=== PATIENT | female | born 1950 | race Asian ===

== ENCOUNTER 2019-11-10 08:22 | Inpatient (IN) | payer MEDICARE, OTHER ==
[~2019-11-10] VITALS: Ht 157.5 cm; Wt 41.7 kg
[2019-11-10] MEDS ORDERED: IPRATRPIUM/ALBUTEROL 0.5/2.5MG 3 ML NEBU. NEB ONE (09:00)
[2019-11-10 09:16] LABS: BASO # 0.1 x10^3/uL (0.0-0.2); BASO % 1 % (0-3); EOS % 0 % (0-3); HEMATOCRIT 44.5 % (36.0-47.0); HEMOGLOBIN 14.8 g/dL (12.0-15.5); LYMPH # 1.3 x10^3/uL (1.0-4.8); LYMPH % 18 % (24-48); MEAN CORPUSCULAR HEMOGLOBIN 33 pg (25-35); MEAN CORPUSCULAR HGB CONC 33 g/dL (31-37); MEAN CORPUSCULAR VOLUME 99 fL (79-100); MONO # 0.5 x10^3/uL (0.0-1.1); MONO % 8 % (0-9); NEUT % 73 % (31-73); PLATELET COUNT 342 x10^3/uL (140-400); RED BLOOD COUNT 4.51 x10^6/uL (3.50-5.40); RED CELL DISTRIBUTION WIDTH 16.3 % (11.5-14.5); WHITE BLOOD COUNT 6.9 x10^3/uL (4.0-11.0)
[2019-11-10 09:24] LABS: INFLUENZA A PATIENT NEGATIVE (NEGATIVE); INFLUENZA B PATIENT NEGATIVE (NEGATIVE)
--- NOTE | 2019-11-10 09:27 | RAD ---
EXAM: Chest, single view. HISTORY: Shortness of breath. COMPARISON: 09/27/2019. 07/10/2019 FINDINGS: A frontal view of the chest is obtained. There is hyperinflation due to emphysema. There is no consolidation, pleural effusion or pneumothorax. There is a circumscribed nodule overlying the right lower thorax due to a nipple shadow. There is a healed or healing posterior left ninth rib fracture. There is cervical spinal fusion instrumentation. There is a healed distal left clavicle fracture. IMPRESSION: 1. Emphysema. 2. No acute pulmonary finding. Electronically signed by: Cleo Hopson MD (11/10/2019 9:24 AM) [place] [id number]
[2019-11-10 09:37] LABS: ALBUMIN 4.1 g/dL (3.4-5.0); CALCIUM 9.5 mg/dL (8.5-10.1); CREATININE 1.2 mg/dL (0.6-1.0); GFR 44.7; TOTAL BILIRUBIN 0.2 mg/dL (0.2-1.0); TOTAL PROTEIN 8.3 g/dL (6.4-8.2)
[2019-11-10 09:38] LABS: POTASSIUM 2.8 mmol/L (3.5-5.1)
[2019-11-10] MEDS ORDERED: POTASSIUM BICARB 20 MEQ EFFERVESCENT TABLET. PO ONE (10:00)
[2019-11-10 10:09] LABS: BILIRUBIN,URINE NEG (NEG); CLARITY,URINE CLEAR; COLOR,URINE YELLOW; GLUCOSE,URINE NEG (NEG); NITRITE,URINE NEG (NEG); UROBILINOGEN,URINE 0.2 mg/dL (0.2 mg/dL)
[2019-11-10 10:10] LABS: BACTERIA,URINE FEW /HPF (0-FEW); SQUAMOUS EPITHELIAL CELL,UR FEW /LPF; WBC,URINE OCC /HPF (0-4)
--- NOTE | 2019-11-10 10:35 | PHYS DOC ---
Past History Past Medical History: Anxiety, Heart Disease, Hypertension Past Surgical History: Other Additional Past Surgical Histo: back surgeries Additional Smoking Information: 1 PPD Alcohol Use: None Drug Use: None Adult General Chief Complaint Chief Complaint: WEAKNESS/GENERALIZED HPI HPI Patient is a 69-year-old female with multiple medical problems/comorbidities who presents with generalized weakness which is been progressive over the past several days with inability to get out of bed this morning. No reported falls, injuries, fever chills, sweats, chest pain palpitations shortness breath cough. No abdominal pain, urinary frequency urgency or dysuria. Reports he can back pain. No other acute symptoms or complaints. History obtained from patient and the patient spouse. [] Review of Systems Review of Systems Review symptoms as per history of present illness. All other review symptoms are negative. All other systems were reviewed and found to be within normal limits, except as documented in this note. Current Medications Current Medications Current Medications Medications (Trade) Dose Ordered Sig/Jf Start Time Stop Time Status Last Admin Dose Admin Albuterol/ Ipratropium (Duoneb) 3 ml 1X ONCE 11/10/19 09:00 11/10/19 09:13 DC 11/10/19 09:10 3 ML Potassium Bicarbonate (Potassium Effervescent Tablet) 40 meq 1X ONCE 11/10/19 10:00 11/10/19 10:01 DC 11/10/19 10:22 40 MEQ Allergies Allergies Allergies Coded Allergies Type Severity Reaction Last Updated Verified Iodine and Iodide Containing Produc Allergy Unknown 11/10/19 Yes morphine Allergy Unknown 11/10/19 Yes Physical Exam Physical Exam Constitutional: Well developed, chronically ill and frail appearing. [] HENT: Normocephalic, atraumatic, bilateral external ears normal, oropharynx moist, nose normal. [] Eyes: PERRLA, EOMI, conjunctiva normal, no discharge. [] Neck: Normal range of motion, no tenderness. [] Cardiovascular:Heart rate regular rhythm, no murmur [] Lungs & Thorax: Bilateral breath sounds clear to auscultation [] Abdomen: Bowel sounds normal, soft, no tenderness. [] Skin: Warm, dry, no erythema, no rash. [] Back: No tenderness. [] Extremities: No tenderness. [] Neurologic: Alert and oriented X 3, normal motor function, normal sensory function, no focal deficits noted. [] Psychologic: Affect normal, judgement normal, mood normal. [] Current Patient Data Vital Signs Vital Signs Date Time Temp Pulse Resp B/P (MAP) Pulse Ox O2 Delivery O2 Flow Rate FiO2 11/10/19 09:12 96 Room Air 11/10/19 08:45 98.7 78 16 Lab Results Laboratory Tests Test 11/10/19 08:50 11/10/19 09:03 11/10/19 09:40 Influenza Type A (Rapid) Negative (NEGATIVE) Influenza Type B (Rapid) Negative (NEGATIVE) White Blood Count 6.9 x10^3/uL (4.0-11.0) Red Blood Count 4.51 x10^6/uL (3.50-5.40) Hemoglobin 14.8 g/dL (12.0-15.5) Hematocrit 44.5 % (36.0-47.0) Mean Corpuscular Volume 99 fL (79-100) Mean Corpuscular Hemoglobin 33 pg (25-35) Mean Corpuscular Hemoglobin Concent 33 g/dL (31-37) Red Cell Distribution Width 16.3 % (11.5-14.5) H Platelet Count 342 x10^3/uL (140-400) Neutrophils (%) (Auto) 73 % (31-73) Lymphocytes (%) (Auto) 18 % (24-48) L Monocytes (%) (Auto) 8 % (0-9) Eosinophils (%) (Auto) 0 % (0-3) Basophils (%) (Auto) 1 % (0-3) Neutrophils # (Auto) 5.0 x10^3uL (1.8-7.7) Lymphocytes # (Auto) 1.3 x10^3/uL (1.0-4.8) Monocytes # (Auto) 0.5 x10^3/uL (0.0-1.1) Eosinophils # (Auto) 0.0 x10^3/uL (0.0-0.7) Basophils # (Auto) 0.1 x10^3/uL (0.0-0.2) Sodium Level 134 mmol/L (136-145) L Potassium Level 2.8 mmol/L (3.5-5.1) *L Chloride Level 94 mmol/L (98-107) L Carbon Dioxide Level 30 mmol/L (21-32) Anion Gap 10 (6-14) Blood Urea Nitrogen 35 mg/dL (7-20) H Creatinine 1.2 mg/dL (0.6-1.0) H Estimated GFR (Cockcroft-Gault) 44.7 BUN/Creatinine Ratio 29 (6-20) H Glucose Level 96 mg/dL (70-99) Lactic Acid Level 1.3 mmol/L (0.4-2.0) Calcium Level 9.5 mg/dL (8.5-10.1) Total Bilirubin 0.2 mg/dL (0.2-1.0) Aspartate Amino Transferase (AST) 31 U/L (15-37) Alanine Aminotransferase (ALT) 21 U/L (14-59) Alkaline Phosphatase 116 U/L (46-116) Troponin I Quantitative < 0.017 ng/mL (0-0.055) UI-Crn-D-Type Natriuretic Peptide 39 pg/mL (0-124) Total Protein 8.3 g/dL (6.4-8.2) H Albumin 4.1 g/dL (3.4-5.0) Albumin/Globulin Ratio 1.0 (1.0-1.7) Urine Collection Type Unknown Urine Color Yellow Urine Clarity Clear Urine pH 7.0 Urine Specific Dutton 1.010 Urine Protein Neg (NEG-TRACE) Urine Glucose (UA) Neg mg/dL (NEG) Urine Ketones (Stick) Neg mg/dL (NEG) Urine Blood Trace (NEG) Urine Nitrite Neg (NEG) Urine Bilirubin Neg (NEG) Urine Urobilinogen Dipstick 0.2 mg/dL (0.2 mg/dL) Urine Leukocyte Esterase Neg (NEG) Urine RBC 1-2 /HPF (0-2) Urine WBC Occ /HPF (0-4) Urine Squamous Epithelial Cells Few /LPF Urine Bacteria Few /HPF (0-FEW) EKG EKG [EKG: Normal sinus rhythm, no acute ST-T wave changes.] Radiology/Procedures Radiology/Procedures [Chest x-ray: No acute current injury disease per radiology report.] Course & Med Decision Making Course & Med Decision Making Pertinent Labs and Imaging studies reviewed. (See chart for details) [Denies take/weakness with hypokalemia and acute renal insufficiency. Potassium place an IV fluids given. Will admit to the hospitalists service for further evaluation and treatment.] Dragon Disclaimer Dragon Disclaimer This electronic medical record was generated, in whole or in part, using a voice recognition dictation system. Departure Departure: Impression: Primary Impression: Generalized weakness Additional Impression: Hypokalemia Disposition: 09 ADMITTED INPATIENT Condition: STABLE Referrals: SATURNINO PIERRE MD (PCP) Problem Qualifiers SUSHILA NAVARRO DO Nov 10, 2019 10:35
[2019-11-10] MEDS ORDERED: POTASSIUM CL 40MEQ IN 0.9%NACL 1,000 ML IV ONE (11:15)
[2019-11-10] MEDS ORDERED: ONDANSETRON PF 4 MG/2 ML VIAL. IV PRN (11:15)
[2019-11-10 11:58] VITALS: BP 148/88
[2019-11-10] MEDS: oxyCODONE IR 5 MG TABLET PO PRN (11:59)
[2019-11-10] MEDS ORDERED: ONDANSETRON ODT 4 MG TAB.RAPDIS PO PRN (12:00)
[2019-11-10 12:04] VITALS: BP 148/88
[2019-11-10] MEDS ORDERED: BUPR200T31 PO (12:15)
[2019-11-10] MEDS ORDERED: CARI350T14 PO (12:15)
[2019-11-10] MEDS ORDERED: DOXY100C14 PO (12:15)
[2019-11-10] MEDS ORDERED: LACT1CAP8 PO (12:15)
[2019-11-10] MEDS ORDERED: DILT300C40 PO (12:15)
[2019-11-10] MEDS ORDERED: PANT40TA5 PO (12:15)
[2019-11-10] MEDS ORDERED: ALPR0.5T6 PO (12:15)
[2019-11-10] MEDS ORDERED: ONDA4TAB12 PO (12:15)
[2019-11-10] MEDS ORDERED: PARO40TA3 PO (12:15)
[2019-11-10] MEDS ORDERED: LOSA100T14 PO (12:15)
[2019-11-10] MEDS ORDERED: FURO20TA3 PO (12:19)
[2019-11-10] MEDS: POTASSIUM BICARB 20 MEQ EFFERVESCENT TABLET. PO SCH ×2 (13:00→14:35)
--- NOTE | 2019-11-10 14:02 | HP ---
ADMIT DATE: 11/10/2019 HISTORY OF PRESENT ILLNESS: The patient is a 69-year-old Arabic [place] female patient who came to the Emergency Room with generalized weakness, weight loss that has been progressive over the last several days with inability to get out of the bed this morning. No reported falls or injuries. Denied any fever, chills, sweats, chest pain, palpitation, shortness of breath, cough. Did complain of abdominal bloating and poor appetite and early satiety. She denied any urinary frequency, urgency, or dysuria. She also complained of weight loss. She lost about 11 pounds over the last 3 months. She was extensively investigated in the Emergency Room, was found to have hypokalemia with serum potassium of 2.8. She also has impaired kidney function with elevated BUN and creatinine to 35 and 1.2 respectively. Her magnesium was normal and all her liver enzymes are within normal range. She was admitted for rehydration and to replenish her potassium and to investigate her weight loss and early satiety once her kidney function has improved. PAST MEDICAL HISTORY: Significant for hypertension, COPD, osteoarthritis and degenerative disk disease. PAST SURGICAL HISTORY: Significant for bilateral cataract extraction, cholecystectomy, appendectomy, total abdominal hysterectomy, bilateral salpingo-oophorectomy. She has 8 back surgery according to her. ALLERGIES: SHE IS ALLERGIC TO IODIDE CONTAINING PRODUCTS, MORPHINE, AND LEVAQUIN. MEDICATIONS: She is currently on following medications: She is on doxycycline monohydrate 100 mg twice a day, Soma 350 mg 3 times a day, diltiazem 300 mg daily, losartan potassium 100 mg once a day, Wellbutrin 150 mg twice a day, paroxetine 40 mg daily, alprazolam 0.5 mg 3 times a day, furosemide 20 mg daily, ondansetron 4 mg every 4 hours as needed, Protonix 40 mg daily, lactobacillus 1 capsule twice a day. FAMILY HISTORY: She has one sister and both parents are . She does not know their age or the cause of their . SOCIAL HISTORY: She is , has 2 daughters and 1 son. She smokes a pack a day, does not drink alcohol or use recreational drugs. She is retired and disabled. REVIEW OF SYSTEMS: As in history of present illness. PHYSICAL EXAMINATION GENERAL: On examining her, she was clearly extremely cachectic, but no pallor, jaundice, cyanosis or thyromegaly. No jugular venous distention. No limb edema. VITAL SIGNS: Her heart rate was 86, blood pressure was 148/88, temperature was 98.4, respiratory rate was 18 and oxygen saturation was 93%. HEAD, EYES, EARS, NOSE AND THROAT: Showed normocephalic, atraumatic. NECK: Supple. HEART: Showed normal first and second heart sounds. No gallop, rub or murmur. CHEST: Clear to auscultation. No crepitation or rhonchi. ABDOMEN: Scaphoid, soft, nontender. NEUROLOGIC: She was awake, alert, responding appropriately. All cranial nerves intact. EXTREMITIES: She moves extremities without difficulty, although she apparently has marked muscle weakness. Her chest x-ray showed that there is hyperinflation due to emphysema. There is no consolidation, pleural effusion or pneumothorax. There is a circumscribed nodule overlying the right lower thorax due to the nipple shadow. There is a healed or healing posterior left ninth rib fracture. There is cervical spine fusion instrumentation. There is a healed distal left clavicle fracture. Her lab work showed that her white cell count was 6900, hemoglobin 14.8, hematocrit 44, MCV 99 and platelet count of 342,000 with normal manual differential. Her chemistry showed a serum sodium 134, potassium 2.8, chloride 94, bicarbonate 30, anion gap of 10, BUN 35, creatinine 1.2, estimated GFR was 44 mL per minute. Her glucose was 96, lactic acid was 1.3, calcium was 9.5, magnesium was 2.4. Total bilirubin, AST, ALT, alkaline phosphatase were normal. Her total protein was 8.3, albumin was 4.1. Her troponin I was less than 0.017. Urinalysis showed the urine was yellow, clear with a pH of 7, specific gravity of 1.010. The urine was negative for protein, glucose, ketones. There is trace of blood, negative for nitrite and leukocyte esterase. There is 1-2 rbc's, 0 wbc's, and very few bacteria. Her influenza A and B were negative. SUMMARY: This is a 69-year-old Arabic [place] female patient who was admitted with generalized weakness, weight loss and early satiety. PLAN: My plan is to continue to rehydrate the patient. We will hold her diuretics for now. I will repeat her BMP this evening and again tomorrow morning and once her kidney function improves, we will arrange for her to have a CT scan of the chest, abdomen and pelvis. CATY DUMONT MD DR: SONIA/martha JOB#: [id number] / [id number]
[2019-11-10 14:18] VITALS: BP 126/75
[2019-11-10] MEDS: PANTOPRAZOLE IV 40 MG VIAL. IVP SCH (14:27)
[2019-11-10] MEDS: ALPRAZolam 0.5 MG TABLET PO SCH ×2 (14:29→20:56)
[2019-11-10] MEDS: NICOTINE 21MG PATCH. TD SCH (14:29)
[2019-11-10] MEDS: POTASSIUM CHLORIDE 20 MEQ TABLET.ER. PO SCH ×2 (14:29→20:57)
--- NOTE | 2019-11-10 16:38 | EKG ---
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
[2019-11-10] MEDS: CARISOPRODOL 350 MG TABLET PO PRN (17:53)
[2019-11-10 18:35] LABS: CALCIUM 8.4 mg/dL (8.5-10.1); CREATININE 0.9 mg/dL (0.6-1.0); GFR 62.3; POTASSIUM 4.8 mmol/L (3.5-5.1)
[2019-11-10 18:43] VITALS: BP 116/77
[2019-11-10] MEDS: buPROPion SR 150 MG TABLET.SA PO SCH (20:56)
[2019-11-10] MEDS: LACTOBACILLUS RHAMNOSUS GG 1 CAPSULE. PO SCH (20:56)
[2019-11-10] MEDS ORDERED: POTASSIUM BICARB 20 MEQ EFFERVESCENT TABLET. PO SCH (21:00)
[2019-11-10] MEDS ORDERED: DOXYCYCLINE MONOHYDRATE PO SCH (21:00)
[2019-11-10 23:08] VITALS: BP 133/73
[2019-11-11] MEDS: oxyCODONE IR 5 MG TABLET PO PRN ×4 (00:28→20:34)
[2019-11-11 06:15] VITALS: BP 154/90
[2019-11-11 06:45] LABS: HEMATOCRIT 41.2 % (36.0-47.0); HEMOGLOBIN 13.6 g/dL (12.0-15.5); RED BLOOD COUNT 4.16 x10^6/uL (3.50-5.40); RED CELL DISTRIBUTION WIDTH 16.5 % (11.5-14.5); WHITE BLOOD COUNT 7.1 x10^3/uL (4.0-11.0)
[2019-11-11 06:50] LABS: C REACTIVE PROTEIN 6.4 mg/L (0-3.3); CREATININE 0.5 mg/dL (0.6-1.0); GFR 122.7; POTASSIUM 4.2 mmol/L (3.5-5.1)
[2019-11-11] MEDS ORDERED: PANTOPRAZOLE 40 MG TABLET. PO SCH (07:30)
[2019-11-11] MEDS: PANTOPRAZOLE IV 40 MG VIAL. IVP SCH (08:12)
[2019-11-11] MEDS: DOXYCYCLINE HYCLATE 100 MG TABLET PO SCH ×2 (08:42→20:34)
[2019-11-11] MEDS: ACETAMINOPHEN 325 MG TABLET PO PRN ×2 (08:42→17:44)
[2019-11-11] MEDS: buPROPion SR 150 MG TABLET.SA PO SCH ×2 (08:42→20:33)
[2019-11-11] MEDS: PARoxetine 20 MG TABLET PO SCH (08:43)
[2019-11-11] MEDS: POTASSIUM CHLORIDE 20 MEQ TABLET.ER. PO SCH ×3 (08:43→20:34)
[2019-11-11] MEDS: ALPRAZolam 0.5 MG TABLET PO SCH ×3 (08:43→20:34)
[2019-11-11] MEDS: LACTOBACILLUS RHAMNOSUS GG 1 CAPSULE. PO SCH ×2 (08:44→20:33)
[2019-11-11] MEDS: LOSARTAN 50 MG TABLET. PO SCH (08:44)
[2019-11-11] MEDS: NICOTINE 21MG PATCH. TD SCH (08:44)
[2019-11-11] MEDS: IPRATRPIUM/ALBUTEROL 0.5/2.5MG 3 ML NEBU. NEB SCH ×4 (09:09→21:04)
[2019-11-11] MEDS ORDERED: HYDR-2145 PO (12:46)
[2019-11-11 15:46] VITALS: BP 129/69
--- NOTE | 2019-11-11 16:10 | RAD ---
CT HEAD WITHOUT CONTRAST 11/11/2019 1:48 PM Indication: Headache Comparison: None available Procedure: Multidetector CT imaging of the head was performed without the administration of contrast. Findings: There is no evidence of acute intracranial hemorrhage. There is no evidence of acute territorial infarction. Please note that CT is limited for evaluation of acute ischemia. No mass effect or midline shift is identified . The ventricles and basilar cisterns have an appropriate appearance. No abnormal extra-axial fluid collections are seen. No acute osseous changes are identified. Impression: No evidence of acute intracranial abnormality CT DOSING PQRS STATEMENT: One or more of the following individualized dose reduction techniques were utilized for this examination: 1. Automated exposure control 2. Adjustment of the mA and/or kV according to patient size 3. Use of iterative reconstruction technique Electronically signed by: Valente Young MD (11/11/2019 4:08 PM) [id number]
--- NOTE | 2019-11-11 16:43 | RAD ---
CT abdomen pelvis with oral contrast only Indication: Weight loss, epigastric pain, early satiety Technique: Noncontrast CT imaging was performed of the abdomen and pelvis, multiplanar reconstruction images submitted. Oral contrast was given. One or more of the following individualized dose reduction techniques were utilized for this examination: 1. Automated exposure control 2. Adjustment of the mA and/or kV according to patient size 3. Use of iterative reconstruction technique. Comparison: September 27, 2019 Findings: There is emphysema of the visualized lung bases, no pleural fluid. Accurate evaluation of the abdominal visceral organs is limited without intravenous contrast, no obvious focal abnormality of the liver, spleen, pancreas allowing for noncontrast technique. There is again dilatation of the extra hepatic common bile duct estimated about 1.5 cm fairly similar. There again has been cholecystectomy. There is no significant adrenal nodularity. There is no significant hydronephrosis of either kidney, no renal calculus identified. Accurate evaluation of bowel is limited due to the paucity of intra-abdominal and intrapelvic fat and the entirety of the bowel not opacified with contrast. There is fairly prominent variable retained stool in the colon. Bowel is not considered significantly dilated. No free air or localized extraluminal fluid collection is identified. Previously seen left retroperitoneal hemorrhage has resolved. There are again pedicle screws bilaterally at L4 and L3, some lucency adjacent to the screws most notable on the right at L3 and on the left at L4. There is L4-5 interbody graft. There is again compression deformity of T11 and T12. There is multilevel degenerative disc disease. There is again grade 1 anterior spondylolisthesis at L3-4. There is lumbar dextroscoliosis. There is appearance of wall thickening near the gastroduodenal junction although may be due to peristalsis during the exam. IMPRESSION: 1. There is prominent retained stool variably in the colon. Accurate evaluation of bowel is limited due to the paucity of intra-abdominal and intrapelvic fat. There is appearance of wall thickening of the gastroduodenal junction, could be due to peristalsis during exam although cannot exclude underlying wall pathology on this exam. 2. There is again dilatation of the extrahepatic common bile duct, correlation with laboratory findings advised. There again has been cholecystectomy. 3. There is again some lucency about the pedicle screws greatest on the right at L3 and on the left at L4 which may be due to loosening unless there is clinical suspicion for infection. 4. There is emphysema. Electronically signed by: Phil Pelayo MD (11/11/2019 4:40 PM) [id number]
[2019-11-11 19:25] VITALS: BP 113/70
[2019-11-11 23:21] VITALS: BP 144/62
--- NOTE | 2019-11-12 00:38 | PN ---
DATE: 11/11/2019 SUBJECTIVE: The patient is sitting slightly propped up in bed, in no apparent respiratory distress. She is awake, alert, continued to complain of severe headache and also epigastric pain; however, her lab work has dramatically improved. In fact, her potassium has risen from 2.8 to 4.2. Her BUN came down from 35 to 13 and creatinine from 1.2 to 0.5. Her white cell count, hemoglobin, hematocrit and platelet are all within normal range. Her sed rate was only 14 mmHg and C-reactive protein was 6.4 mg/dL. PHYSICAL EXAMINATION: GENERAL: When I examined her, she looked well and was clearly in no apparent respiratory distress. No pallor, jaundice, cyanosis, or thyromegaly. No jugular venous distension. No limb edema. VITAL SIGNS: Her heart rate was 86, blood pressure was 154/90, temperature was 98.3, respiratory rate was 18, and oxygen saturation was 96% on 2 liters of oxygen. HEAD, EYES, EARS, NOSE, AND THROAT: Showed normocephalic and atraumatic. NECK: Supple. HEART: Normal first and second heart sounds. No gallop or murmur. CHEST: Clear to auscultation. No crepitation or rhonchi. ABDOMEN: Scaphoid, soft, and nontender. NEUROLOGIC: She is awake, alert, and responding appropriately. All cranial nerves are intact. She moves extremities without difficulty. She ambulates without assistance or assistive devices. Her lab work this morning showed a serum sodium 138, potassium 4.2, chloride 100, bicarbonate 31, anion gap of 7, BUN 13, creatinine 0.5. Estimated GFR was 122 mL per minute. Her glucose 105, calcium was 9. Her white cell count was 7100, hemoglobin 13.6, hematocrit 41, MCV 99, and platelet count 314,000. Urinalysis was unremarkable and her influenza A and B were negative. Her chest x-ray showed emphysema, but no acute pulmonary finding. My plan is to arrange for her to have a CT scan of the head because of a severe headache that she has been having and that she is allergic to IODINE and IODINE-CONTAINING PRODUCT, we will do a CT scan of the abdomen and pelvis with oral contrast using barium sulfate. We will decide on further management according to the finding. CATY DUMONT MD DR: Ekaterina JOB#: [id number] / [id number]
[2019-11-12] MEDS: ACETAMINOPHEN 325 MG TABLET PO PRN ×2 (01:07→09:18)
[2019-11-12] MEDS: CARISOPRODOL 350 MG TABLET PO PRN ×2 (01:07→10:58)
[2019-11-12] MEDS: oxyCODONE IR 5 MG TABLET PO PRN ×2 (04:40→10:57)
[2019-11-12] MEDS: IPRATRPIUM/ALBUTEROL 0.5/2.5MG 3 ML NEBU. NEB SCH ×2 (04:59→10:37)
[2019-11-12 05:16] VITALS: BP 152/87
[2019-11-12] MEDS: NICOTINE 21MG PATCH. TD SCH (09:17)
[2019-11-12] MEDS: ALPRAZolam 0.5 MG TABLET PO SCH (09:18)
[2019-11-12] MEDS: LOSARTAN 50 MG TABLET. PO SCH (09:18)
[2019-11-12] MEDS: buPROPion SR 150 MG TABLET.SA PO SCH (09:18)
[2019-11-12] MEDS: PANTOPRAZOLE IV 40 MG VIAL. IVP SCH (09:19)
[2019-11-12] MEDS: PARoxetine 20 MG TABLET PO SCH (09:19)
[2019-11-12] MEDS: DOXYCYCLINE HYCLATE 100 MG TABLET PO SCH (09:19)
[2019-11-12] MEDS: POTASSIUM CHLORIDE 20 MEQ TABLET.ER. PO SCH (09:20)
[2019-11-12] MEDS: LACTOBACILLUS RHAMNOSUS GG 1 CAPSULE. PO SCH (09:24)
[2019-11-12 11:05] VITALS: BP 125/80
--- NOTE | 2019-11-12 15:18 | DS ---
DATE OF DISCHARGE: 11/12/2019 HOSPITAL COURSE: The patient was admitted with complaint of generalized weakness and weight loss. She was also found to have hypokalemia with a potassium of only 2.8. She was also dehydrated. Her BUN was 35 and creatinine was 1.2. She was rehydrated and her potassium was replenished and she did actually very well. Her CT scan of the abdomen and pelvis showed that there is prominent retained stool variably in the colon. Accurate evaluation of bowel is limited due to paucity of intra-abdominal and intrahepatic and intrapelvic fat. There is appearance of wall thickening of the gastroduodenal junction, could be due to peristalsis during the exam, although cannot exclude underlying gallbladder pathology in this exam. There is again dilatation of the extrahepatic common bile duct. Correlation with laboratory finding advised. There again has been cholecystectomy. There is again some lucency about the pedicle screws greatest on the right at L3 and left at L4, which may be due to loosening unless there is clinical suspicion for infection. There is also emphysema. Her lab work showed that her white cell count has been normal. Her sedimentation rate is only 14 mm/hr. C-reactive protein only 6.4. Her cortisol in the morning was high at 35 in the context of hypokalemia and weight loss is obviously concerning for possible underlying malignancy, although stress alone can cause this elevation of the cortisol. PHYSICAL EXAMINATION: GENERAL: When I saw her today, she looked well and was clearly in no apparent respiratory distress. There was no pallor, jaundice, cyanosis or thyromegaly. No jugular venous distention. No lower limb edema. However, the patient is extremely cachectic with body mass index 16.8 kilograms square meter. VITAL SIGNS: Her heart rate was 98, blood pressure was 125/80, temperature was 98.6, respiratory rate 20, and oxygen saturation was 96%. HEAD, EYES, EARS, NOSE AND THROAT: Normocephalic, atraumatic. NECK: Supple. HEART: Showed normal first and second heart sounds. No gallop, rub or murmur. CHEST: Clear to auscultation. No crepitation or rhonchi. ABDOMEN: Distended, soft, nontender. No guarding or rigidity. No organomegaly. All hernial orifice intact. Bowel sounds normal. NEUROLOGIC: She was awake, alert, responding appropriately. All cranial nerves intact. She moves extremities without difficulty. She has marked muscle wasting and weakness. Her intake and output are incompletely recorded. LABORATORY DATA: Showed a white cell count 7000, hemoglobin 13.6, hematocrit 41, MCV 99, and platelet count 314,000. Her chemistry showed a serum sodium 138, potassium 4.2, chloride 100, bicarbonate 31, anion gap of 7, BUN 13, creatinine 0.5, estimated GFR was 122 mL per minute. Her glucose 105, calcium was 9. C-reactive protein was 6.4 and morning cortisol was 35 mcg/dL, normal range is 4.3 to 22.4 mcg/dL. DISCHARGE MEDICATIONS: She was discharged home to continue on alprazolam 0.5 mg 3 times a day, Wellbutrin 150 mg twice a day, carisoprodol (Soma) 350 mg 3 times a day, diltiazem 300 mg once a day, furosemide 20 mg daily, hydrochlorothiazide 25 mg once a day, lactobacillus 1 capsule twice a day, losartan potassium 100 mg daily, ondansetron 4 mg every 6-8 hours, Protonix 40 mg daily and paroxetine 40 mg once a day. FINAL DISCHARGE DIAGNOSES: 1. Generalized weakness, weight loss and early satiety. Hypokalemia resolved. 2. Acute kidney injury, resolved; chronic obstructive pulmonary disease, hypertension, osteoarthritis and degenerative disk disease. CATY DUMONT MD DR: SONIA/martha JOB#: [id number] / [id number]
== END 2019-11-12 15:15 | disposition home or self-care (01) | DRG 640 ==
LOC: ER 08:22 → 1 SOUTH 10:00
PROVIDERS: ADMIT Internal Medicine; ATTEND Internal Medicine
DX: E87.6 Hypokalemia (principal); N17.0 Acute kidney failure with tubular necrosis; E87.1 Hypo-osmolality and hyponatremia; E86.0 Dehydration; F17.210 Nicotine dependence, cigarettes, uncomplicated; I10 Essential (primary) hypertension; J43.9 Emphysema, unspecified; Z90.710 Acquired absence of both cervix and uterus; Z98.41 Cataract extraction status, right eye; Z98.42 Cataract extraction status, left eye; F41.9 Anxiety disorder, unspecified; M19.90 Unspecified osteoarthritis, unspecified site; Z88.8 Allergy status to other drugs, medicaments and biological substances; Z90.49 Acquired absence of other specified parts of digestive tract; Z90.722 Acquired absence of ovaries, bilateral
CPT/HCPCS: 36415; 70450; 71045; 74176; 80048; 80053; 81001; 82533; 82947; 83605; 83735; 83880; 84484; 85025; 85027; 85651; 86140; 87040; 87804; 93005; 94640; 96365; C9113; J3010; J7620; 99285-25

== ENCOUNTER → 2020-03-03 | Outpatient (CLI) | payer MEDICARE, OTHER ==
[~2020-03-03] MED LIST: ALPR0.5T6 PO; BUPR200T31 PO; CARI350T14 PO; DILT300C40 PO; DOXY100C14 PO; FURO20TA3 PO; HYDR-2145 PO; LACT1CAP8 PO; LOSA100T14 PO; ONDA4TAB12 PO; PANT40TA5 PO; PARO40TA3 PO
--- NOTE | 2020-03-03 11:19 | RAD ---
Ultrasound of the left axilla 03/03/2020 CLINICAL HISTORY: Palpable lump in the left axilla. TECHNIQUE: A real-time ultrasound examination of the left axilla in the area of the patient's palpable abnormality was performed. Multiple images were obtained. The patient's palpable abnormality represents an irregular somewhat rounded hypoechoic mass which measures 1.4 x 1.5 x 1.4 cm longitudinal, transverse, and AP dimensions. This is concerning for a neoplastic process possibly a breast cancer which has spread and/or developed to/in the left axilla. Several benign-appearing lymph nodes are seen within the left axilla which measure 1 to 1.3 cm in size. IMPRESSION: 1.5 cm hypoechoic mass is seen within the left axilla which corresponds to the patient's palpable abnormality. This is concerning for a neoplastic process as discussed above. This would be amenable to ultrasound-guided biopsy which is recommended for further evaluation. Additionally, if the patient has not had a mammogram recently, bilateral diagnostic mammography would be recommended. Electronically signed by: Lyndon Booth MD (03/03/2020 11:16 AM) [id number]
== END | disposition home or self-care (01) ==
LOC: US 10:38
PROVIDERS: ATTEND Family Medicine
DX: R22.32 Localized swelling, mass and lump, left upper limb (principal)
CPT/HCPCS: 76881